=== PATIENT | male | born 1960 | race Caucasian/White ===

== ENCOUNTER 2017-06-04 11:13 | Emergency (ER) | payer BC ==
[2017-06-04 11:30] VITALS: BP 150/84
--- NOTE | 2017-06-04 11:33 | UC ---
Lower Extremity/Ankle HPI - HPI Summary HPI Summary: Pt presents with left ankle pain for the last 3 days. He tells me that 3 days ago, he jumped out of the back of his pickup truck and landed on his feet. Didn' t have immediate pain, but did later that night. Since that time has had pain with weight bearing, swelling, and some bruising to left lateral ankle. Denies numbness, tingling. - History of Current Complaint Chief Complaint: UCLowerExtremity Stated Complaint: ANKLE INJURY Time Seen by Provider: 06/04/17 11:32 Hx Obtained From: Patient Onset/Duration: Sudden Onset Severity Initially: Severe Severity Currently: Severe Pain Intensity: 7 Pain Scale Used: 0-10 Numeric Aggravating Factor(s): Standing, Ambulation Alleviating Factor(s): Rest Able to Bear Weight: Yes - Allergies/Home Medications Allergies/Adverse Reactions: Allergies Allergy/AdvReac Type Severity Reaction Status Date / Time No Known Allergies Allergy Verified 06/04/17 11:31 Home Medications: Home Medications NK [No Home Medications Reported] 06/04/17 [History Confirmed 06/04/17] PMH/Surg Hx/FS Hx/Imm Hx Previously Healthy: Yes - Surgical History Surgical History: None Surgery Procedure, Year, and Place: T&A. tooth extractions - Family History Known Family History: Positive: Cardiac Disease - Social History Occupation: Employed Full-time Lives: With Family Alcohol Use: Daily Substance Use Type: Marijuana Smoking Status (MU): Heavy Every Day Tobacco Smoker Length of Time of Smoking/Using Tobacco: 35 years Review of Systems Constitutional: Negative Skin: Negative Respiratory: Negative Cardiovascular: Negative Neurovascular: Negative Musculoskeletal: Decreased ROM - Left ankle, Other: - Pain left ankle Neurological: Negative Psychological: Negative All Other Systems Reviewed And Are Negative: Yes Physical Exam - Summary Physical Exam Summary: GENERAL: NAD. WDWN. No pain distress. SKIN: No rashes, sores, ulcers, masses, lesions. NECK: Supple. Nontender. No lymphadenopathy. CHEST: CTAB. No r/r/w. No accessory muscle use. Breathing comfortably and in no distress. CV: RRR. Without m/r/g. Pulses intact PT and DP. Brisk cap refill. MSK: TTP over inferior lateral malleolus. Mild edema. Strength 5/5 with FROM. No obvious bony deformities. Negative talar tilt. No increased laxity. Negative [place] test. NEURO: Alert. Sensations intact and symmetric B/L LEs PSYCH: Age appropriate behavior. Triage Information Reviewed: Yes Vital Signs: Initial Vital Signs Temp 97.6 F 06/04/17 11:24 Pulse 65 06/04/17 11:24 Resp 18 06/04/17 11:24 BP 150/84 06/04/17 11:24 Pulse Ox 100 06/04/17 11:24 Lower Extremity Course/Dx - Course Course Of Treatment: IMPRESSION: Small avulsion fracture at the lateral malleolus with associated soft tissue swelling and talocrural joint effusion. He is currently ambulating with crutches. I will place him in a CAM boot and have him f/u with Orthopedics this week. RICE and ibuprofen for pain. - Differential Dx/Diagnosis Provider Diagnoses: Closed Left lateral malleolus non displaced avulsion fracture Discharge - Sign-Out/Discharge Documenting (check all that apply): Discharge - Discharge Plan Condition: Stable Disposition: HOME Patient Education Materials: Avulsion Fracture (ED) Referrals: Lalo Izquierdo MD [Primary Care Provider] - Roland Fulton MD [Medical Doctor] - As Soon As Possible Additional Instructions: If you develop a fever, shortness of breath, chest pain, new or worsening symptoms - please call your PCP or go to the ED. Your blood pressure was high at todays visit. Please see your primary provider within 4 weeks for recheck and re-evaluation. 1) Rest, Ice, and elevate your ankle as much as possible 2) May take 600-800mg ibuprofen every 6-8hours as needed for pain 3) Use your crutches and walking boot as much as possible. - Billing Disposition and Condition Condition: STABLE Disposition: HOME
--- NOTE | 2017-06-04 12:03 | RAD ---
Indication: Pain following jumping injury 5 days ago. Previous ankle sprains. Comparison: July 29, 2012 CT. Technique: AP, mortise, and lateral views LEFT ankle. Report: Normal articular alignment. Soft tissue swelling over the lateral malleolus and the talocrural joint effusion. Suggestion of a small avulsion fracture from the caudal margin of the lateral malleolus. Chronic ossicles along the course of the deltoid ligament consistent with prior deltoid ligament injury. IMPRESSION: Small avulsion fracture at the lateral malleolus with associated soft tissue swelling and talocrural joint effusion.
== END 2017-06-04 12:24 | disposition home or self-care (01) ==
LOC: UCEAST 11:13
DX: S82.65XA Nondisplaced fracture of lateral malleolus of left fibula, initial encounter for closed fracture (principal); W17.89XA Other fall from one level to another, initial encounter; Y93.9 Activity, unspecified; Y92.9 Unspecified place or not applicable; F17.210 Nicotine dependence, cigarettes, uncomplicated
CPT/HCPCS: 99211; G0463

== ENCOUNTER 2017-10-09 12:49 | Emergency (ER) | payer BC ==
--- NOTE | 2017-10-09 15:48 | UC ---
Throat Pain/Nasal Jake HPI - HPI Summary HPI Summary: 57 y/o male presents to the urgent care c/o difficulty breathing, fatigue, difficulty swallowing; feels like his "throat is on fire" states he has had these symptoms for a week - History of Current Complaint Chief Complaint: UCRespiratory Stated Complaint: SORE THROAT SOB Time Seen by Provider: 10/09/17 15:43 Hx Obtained From: Patient Pain Intensity: 2 - Allergies/Home Medications Allergies/Adverse Reactions: Allergies Allergy/AdvReac Type Severity Reaction Status Date / Time No Known Allergies Allergy Verified 06/04/17 11:31 PMH/Surg Hx/FS Hx/Imm Hx - Surgical History Surgical History: Yes Surgery Procedure, Year, and Place: T&A. tooth extractions - Family History Known Family History: Positive: Cardiac Disease - Social History Alcohol Use: Daily Substance Use Type: Marijuana Smoking Status (MU): Heavy Every Day Tobacco Smoker Length of Time of Smoking/Using Tobacco: 35 years Physical Exam - Summary Physical Exam Summary: Vital Signs Reviewed: Yes General: well developed, well nourished male sitting in the examining table w/o any apparent distress Eyes: Positive: Conjunctiva Clear - PERRLA, EOMI, fundi grossly normal ENT: Positive: Normal ENT inspection, Hearing grossly normal, Pharynx normal, Nasal congestion - edematous and erythematous nasal mucosa, Nasal drainage - yellowish drainage, TMs normal. Negative: Tonsillar swelling, Tonsillar exudate Neck: Positive: Supple, Nontender, No Lymphadenopathy Respiratory: no orthopnea or dyspnea. Able to speak in full sentences, no retractions or accessory muscle use, no tripod position, stridor, or head bobbing. Positive breath sounds bilaterally, mild wheezing in the left upper posterior lung wheezes, rhonchi, rales. Cardiovascular: Positive: RRR, No Murmur, Pulses Normal, Brisk Capillary Refill Abdomen Description: Positive: Nontender, No Organomegaly, Soft. Negative: CVA Tenderness (R), CVA Tenderness (L) Bowel Sounds: Positive: Present Musculoskeletal Exam: Normal Musculoskeletal: Positive: Strength Intact, ROM Intact, No Edema Neurological Exam: Normal Psychological Exam: Normal Skin Exam: Normal Triage Information Reviewed: Yes Vital Signs: Initial Vital Signs Temp 98.0 F 10/09/17 13:22 Pulse 78 10/09/17 13:22 Resp 18 10/09/17 13:22 BP 115/76 10/09/17 13:22 Pulse Ox 100 10/09/17 13:22 Throat Pain/Nasal Course/Dx - Differential Dx/Diagnosis Differential Diagnosis/HQI/PQRI: Influenza, Laryngitis, Pharyngitis, Sinusitis, URI, Other - bronchitis, pneumonia, COPD exacerbation Provider Diagnoses: 1- COPD exacerbation due to Bronchitis. 2- RT breast mass Discharge - Discharge Plan Referrals: Lalo Izquierdo MD [Primary Care Provider] -
[2017-10-09] MEDS ORDERED: Albuterol/Ipratropium NEB.SOL* Albuterol 2.5 MG/Ipratropium 0.5 MG 3 ML INH ONE (15:59)
[2017-10-09] MEDS ORDERED: predniSONE TAB* 20 MG PO ONE (15:59)
[2017-10-09 17:02] VITALS: BP 149/88
--- NOTE | 2017-10-09 17:16 | RAD ---
Indication: Cough, shortness of breath and fever. 2 views of the chest with dual energy PA views are reviewed. No mediastinal shift is noted. Heart is of normal size and configuration. Lung angela appear clear. IMPRESSION: No active cardiopulmonary disease is noted.
[2017-10-09] MEDS ORDERED: DOXYcycline CAP(*) 100 MG PO ONE ×2 (17:22→17:23)
== END 2017-10-09 17:35 | disposition home or self-care (01) ==
LOC: UCEAST 12:49
DX: J44.1 Chronic obstructive pulmonary disease with (acute) exacerbation (principal); N63.10 Unspecified lump in the right breast, unspecified quadrant; Z82.49 Family history of ischemic heart disease and other diseases of the circulatory system; F17.200 Nicotine dependence, unspecified, uncomplicated
CPT/HCPCS: 71046; 87651; 99213; A9270-GY; G0463; J7512